=== PATIENT | female | born 1955 ===

== ENCOUNTER 2019-04-12 11:02 | Emergency (ER) | payer BC ==
--- NOTE | 2019-04-12 11:15 | EDM.PDOC ---
<Ryan Gould - Last Filed: 04/12/19 12:00> ED HPI GENERAL MEDICAL PROBLEM - General Chief Complaint: ENT Problem Stated Complaint: COUGHING UP BLOOD Time Seen by Provider: 04/12/19 11:11 Source of Information: Reports: Patient, RN, RN Notes Reviewed History Limitations: Reports: No Limitations - History of Present Illness INITIAL COMMENTS - FREE TEXT/NARRATIVE: Patient presents to the ER for complaints of coughing up blood. She was seen in the ER yesterday for a nosebleed that would not stop. She refused having a rhinorocket placed and was sent home with Afrin to use along with aquapore to use on nasal mucosa. She presents today with same complaint and just wants the bleeding to stop. She woke up at 3 am this morning and had to sit up and was coughing up clots of blood and can feel it runny down the back of her throat. It is making her stomach upset with swallowing so much of it. She denies any blood coming out of her nose today, just draining down the back of her throat. Onset Date: 04/11/19 Duration: Constant Location: Reports: Head, Face Severity: Mild Improves with: Reports: None Worsens with: Reports: None Associated Symptoms: Reports: No Other Symptoms - Related Data Allergies Allergy/AdvReac Type Severity Reaction Status Date / Time clindamycin Allergy Cannot Verified 04/12/19 11:09 Remember Home Meds: Home Meds Calcium Carbonate [Tums] 300 mg PO ASDIRECTED PRN 07/05/18 [History] Calcium Carbonate/Vitamin D3 [Calcium 500 + Vit D 200 Tablet] 1 each PO DAILY [History] Dexlansoprazole [Dexilant] 60 mg PO DAILY 07/05/18 [History] Lactobacillus Combo No.10 [Probiotic] 1 each PO DAILY 07/05/18 [History] Levothyroxine Sodium [Synthroid] 50 mcg PO Q48H 07/05/18 [History] Levothyroxine Sodium [Synthroid] 100 mcg PO Q48H 07/05/18 [History] Loratadine [Claritin] 10 mg PO DAILY 07/05/18 [History] Multivitamin [Daily Multiple Vitamin] 1 each PO DAILY 07/05/18 [History] Mylanta 30 ml PO DAILY 07/05/18 [History] Past Medical History Gastrointestinal History: Reports: Other (See Below) Other Gastrointestinal History: heartburn Endocrine/Metabolic History: Reports: Hypothyroidism ED ROS ENT - Review of Systems Review Of Systems: Comprehensive ROS is negative, except as noted in HPI. ED EXAM, ENT - Physical Exam Exam: See Below Exam Limited By: No Limitations General Appearance: Alert, WD/WN, No Apparent Distress Eye Exam: Bilateral Eye: EOMI, Normal Inspection, PERRL Ears: Normal External Exam, Normal Canal, Hearing Grossly Normal, Normal TMs Nose: Normal Inspection, Normal Mucousa, No Blood Mouth/Throat: Normal Inspection, Normal Gums, Normal Lips, Normal Oropharynx, Normal Teeth, Other (post nasal drainage blood) Head: Atraumatic, Normocephalic Neck: Normal Inspection, Supple, Non-Tender, Full Range of Motion Respiratory/Chest: No Respiratory Distress, Lungs Clear, Normal Breath Sounds, No Accessory Muscle Use, Chest Non-Tender Cardiovascular: Normal Peripheral Pulses, Regular Rate, Rhythm, No Edema, No Gallop, No JVD, No Murmur, No Rub GI/Abdominal: Normal Bowel Sounds, Soft, Non-Tender, No Organomegaly, No Distention, No Abnormal Bruit, No Mass Neurological: Alert, Oriented, CN II-XII Intact, Normal Cognition, Normal Gait, Normal Reflexes, No Motor/Sensory Deficits Psychiatric: Normal Affect, Normal Mood Course - Vital Signs Last Recorded V/S: Last Vital Signs Temp 36.4 C 04/12/19 11:09 Pulse 100 04/12/19 11:09 Resp 16 04/12/19 11:09 BP 177/87 H 04/12/19 11:09 Pulse Ox 100 04/12/19 11:09 - Orders/Labs/Meds Meds: Medications Discontinued Medications Generic Name Dose Route Start Last Admin Trade Name Freq PRN Reason Stop Dose Admin Lidocaine HCl 15 ml 04/12/19 11:18 04/12/19 11:26 Xylocaine 2% Viscous PO 04/12/19 11:19 15 ml ONETIME ONE Administration Departure - Departure Disposition: Home, Self-Care 01 Clinical Impression: Epistaxis, recurrent - Discharge Information Instructions: Nosebleed, Prad-ge-Buij Forms: ED Department Discharge Care Plan Goals: The patient was advised of the examination results. A Rhino rocket was placed in her right nare to control the posterior bleeding. The patient should have the device removed on Monday (04/15/19). A call was placed to the [facility] to arrange for removal. If the patient has any additional symptoms or concerns, the patient should either return to the emergency department or visit her primary care facility. Sepsis Event Note - Focused Exam Vital Signs: Vital Signs Temp Pulse Resp BP Pulse Ox 04/12/19 11:09 36.4 C 100 16 177/87 H 100 Date Exam was Performed: 04/12/19 Time Exam was Performed: 12:01 <Rhett Canchola - Last Filed: 04/12/19 12:25> ED ENT PROCEDURES - Epistaxis Procedure Indication: Epistaxis, Uncontrolled Recent anticoagulants/antiplatlets: No Uncontrolled HTN: No Recent septal/nasal surgery: No Site of bleeding: Right Nare, Posterior Clearing of clots: Patient Blew Nose Topical Meds: Phenylephrine Ice pack to area: No Posterior packing: Long Inflatable Nasal Tampon Local anesthesia - Lidocaine (Xylocaine): 1% Plain (viscous) Local Anesthetic Volume: 2cc Complications: No Course - Re-Assessments/Exams Free Text/Narrative Re-Assessment/Exam: 04/12/19 11:34 I have examined the patient. I have discussed findings and treatment plan with the PA student. I agree with the assessment and plan in the following students note. Free Text/Narrative Re-Assessment/Exam: 04/12/19 12:22 A call was placed to the [facility] in [place]. The patient should have the rhino rocket removed on Monday and may need to move her ENT referral up to a sooner date. Departure - Departure Time of Disposition: 12:23 Condition: Fair - Discharge Information *PRESCRIPTION DRUG MONITORING PROGRAM REVIEWED*: Not Applicable *COPY OF PRESCRIPTION DRUG MONITORING REPORT IN PATIENT TONY: Not Applicable Sepsis Event Note - Focused Exam Date Exam was Performed: 04/12/19 Time Exam was Performed: 12:22
[2019-04-12] MEDS ORDERED: Lidocaine 2% Viscous Solution 15 ML Cup PO ONE (11:18)
== END 2019-04-12 12:30 | disposition home or self-care (01) ==
LOC: EDSEX → DL.ED 11:02 → MERGE 11:02 → DL.ED 12:30
DX: R04.0 Epistaxis (principal); E03.9 Hypothyroidism, unspecified; Z88.1 Allergy status to other antibiotic agents; Z79.899 Other long term (current) drug therapy
CPT/HCPCS: 30905; 99283; A9270; 30903

== ENCOUNTER 2019-04-12 22:00 | Emergency (ER) | payer BC ==
--- NOTE | 2019-04-12 22:44 | EDM.PDOC ---
ED HPI GENERAL MEDICAL PROBLEM - General Chief Complaint: ENT Problem Stated Complaint: NASAL PAIN Time Seen by Provider: 04/12/19 22:44 Source of Information: Reports: Patient, RN, RN Notes Reviewed History Limitations: Reports: No Limitations - History of Present Illness INITIAL COMMENTS - FREE TEXT/NARRATIVE: patient presents to ER with complaint of swelling to the right side of the face , and drainage from the right eye. Patient states she was seen around noon in the ER for a nosebleed. Afrin was used, silver nitrate sticks were used, and finally a nasal rocket was placed. Patient states throughout the day she is begun having severe pressure on the right side of the face, around and behind the right eye. 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 Right Face/Facial Pain Score (Numeric/FACES): 10 - Related Data Allergies Allergy/AdvReac Type Severity Reaction Status Date / Time clindamycin Allergy Cannot Verified 04/12/19 22:21 Remember Home Meds: Home Meds Calcium Carbonate [Tums] 300 mg PO ASDIRECTED PRN 07/05/18 [History] Calcium Carbonate/Vitamin D3 [Calcium 500 + Vit D 200 Tablet] 1 each PO DAILY [History] Dexlansoprazole [Dexilant] 60 mg PO DAILY 07/05/18 [History] Lactobacillus Combo No.10 [Probiotic] 1 each PO DAILY 07/05/18 [History] Levothyroxine Sodium [Synthroid] 50 mcg PO Q48H 07/05/18 [History] Levothyroxine Sodium [Synthroid] 100 mcg PO Q48H 07/05/18 [History] Loratadine [Claritin] 10 mg PO DAILY 07/05/18 [History] Mylanta 30 ml PO DAILY PRN 07/05/18 [History] Past Medical History HEENT History: Reports: Impaired Vision Cardiovascular History: Reports: None Respiratory History: Reports: None Gastrointestinal History: Reports: Other (See Below) Other Gastrointestinal History: heartburn Genitourinary History: Reports: None 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 Musculoskeletal History: Reports: None Neurological History: Reports: None Psychiatric History: Reports: None Endocrine/Metabolic History: Reports: Hypothyroidism Hematologic History: Reports: None Immunologic History: Reports: None Dermatologic History: Reports: None - Infectious Disease History Infectious Disease History: Reports: Chicken Pox, Mumps - Past Surgical History Head Surgeries/Procedures: Reports: None Respiratory Surgical History: Reports: None Social & Family History - Family History Family Medical History: Noncontributory - Tobacco Use Smoking Status *Q: Former Smoker Years of Tobacco use: 25 Packs/Tins Daily: 0.5 Used Tobacco, but Quit: Yes Month/Year Tobacco Last Used: 01/2010 - Caffeine Use Caffeine Use: Reports: Coffee - Recreational Drug Use Recreational Drug Use: No ED ROS ENT - Review of Systems Review Of Systems: Comprehensive ROS is negative, except as noted in HPI. ED EXAM, ENT - Physical Exam Exam: See Below Exam Limited By: No Limitations General Appearance: Alert, WD/WN, Moderate Distress Eye Exam: Right Eye: Other (purulent drainage from the right eye) Ears: Normal External Exam, Normal Canal, Hearing Grossly Normal, Normal TMs, Other (healing ruptured TM on the left) Nose: Normal Inspection, Injected Turbinates (ight), Other (nasal rocket in place) Mouth/Throat: Normal Inspection, Normal Gums, Normal Lips, Normal Oropharynx, Normal Teeth Head: Atraumatic, Normocephalic Neck: Normal Inspection, Supple, Non-Tender, Full Range of Motion Respiratory/Chest: No Respiratory Distress, Lungs Clear, Normal Breath Sounds, No Accessory Muscle Use, Chest Non-Tender Cardiovascular: Normal Peripheral Pulses, Regular Rate, Rhythm, No Edema, No Gallop, No JVD, No Murmur, No Rub GI/Abdominal: Normal Bowel Sounds, Soft, Non-Tender (Female) Exam: Deferred Rectal (Female) Exam: Deferred Back: Normal Inspection, Full Range of Motion Extremities: Normal Inspection, Normal Range of Motion, Non-Tender, No Pedal Edema, Normal Capillary Refill Neurological: Alert, Oriented, CN II-XII Intact, Normal Cognition, Normal Gait, Normal Reflexes, No Motor/Sensory Deficits Psychiatric: Normal Affect, Normal Mood, Anxious Skin: Warm, Dry, Intact, Normal Color, No Rash Lymphatic: Adenopathy (right anterior cervical) Course - Vital Signs Last Recorded V/S: Last Vital Signs Temp 97.8 F 04/12/19 22:14 Pulse 92 04/12/19 22:14 Resp 18 04/12/19 22:14 BP 105/74 04/12/19 22:14 Pulse Ox 98 04/12/19 22:14 - Orders/Labs/Meds Meds: Medications Discontinued Medications Generic Name Dose Route Start Last Admin Trade Name Freq PRN Reason Stop Dose Admin Amoxicillin/Clavulanate Potassium 1 tab 04/12/19 23:44 04/12/19 23:53 Augmentin 875 Mg/125 Mg PO 04/12/19 23:45 1 tab ONETIME ONE Administration - Radiology Interpretation Free Text/Narrative:: CT Max/Face/Sinus wo contrast: FINDINGS: Orbits: Orbits are normal. Globes are unremarkable. No intraorbital edema or fluid. Intraconal and extraconal fat are unremarkable. There is air in the right naso lacrimal duct, but the right nasal mucosa is severely edematous. Sinuses: Small air-fluid levels in bilateral maxillary sinuses. Frontal sinus hypoplastic. Bilateral anterior ethmoid air cell opacification. Bones/joints: No acute fracture. Nasal cavity: Right nasal mucosal edema. Soft tissues: Unremarkable. IMPRESSION: 1. Right nasal mucosal edema. 2. Right nasolacrimal duct shows proximal air. Distal aspect is lost visualization in the severe right nasal mucosal edema. 3. Bilateral maxillary sinus air-fluid levels. 4. Chronic sinus disease in the anterior ethmoid sinuses. Thank you for allowing us to participate in the care of your patient. Dictated and Authenticated by: Mitchell Cartagena MD 04/12/2019 11:59 PM Central Time ([place] & [place]) CT Soft tissue/neck: FINDINGS: Nasopharynx: Unremarkable. Oropharynx: Unremarkable. No significant tonsillar enlargement. Hypopharynx: Unremarkable. Larynx: Unremarkable. Normal epiglottis. Retropharyngeal space: Unremarkable. Submandibular/Parotid glands: Normal. Glands are normal in size. Thyroid: Normal. No enlarged or calcified nodules. Lymph nodes: Unremarkable. No lymphadenopathy. Trachea: Visualized trachea is unremarkable. Lungs: Right upper lobe posterior subsegmental area of ground-glass opacification. 14 mm in diameter. Series 7, image 62 (with lung windows). This may represent an area of minor infiltrate. Vasculature: Ascending aorta with maximal AP diameter of 3.8 cm. Bones/joints: Multilevel degenerative cervical spine change. Soft tissues: Unremarkable. No significant soft tissue swelling. IMPRESSION: 1. Right upper lobe subsegmental ground-glass opacification which may represent an area of infiltrate. This is nonspecific. This does not appear masslike on this current evaluation. Recommend CT at 6-12 months to confirm persistence or resolution of the this opacification , then CT at 3 and at 5 years. (Moraima et al., Fleischner Society, 2017) 2. Soft tissues of the neck without mass or edema. No adenopathy. 3. No evidence of parapharyngeal abscess. 4. Degenerative cervical spine disease. Thank you for allowing us to participate in the care of your patient. Dictated and Authenticated by: Mitchell Cartagena MD 04/12/2019 11:54 PM Central Time ([place] & [place]) See rad report - Re-Assessments/Exams Free Text/Narrative Re-Assessment/Exam: 04/13/19 04:42 nasal rocket was removed from the right near without difficulty. No bleeding from the nose or down the back of the throat after removing the nasal rocket. Departure - Departure Time of Disposition: 00:45 Disposition: Home, Self-Care 01 Condition: Fair Clinical Impression: Acute sinus infection Qualifiers: Sinusitis location: maxillary Recurrence: non-recurrent Qualified Code(s): J01.00 - Acute maxillary sinusitis, unspecified - Discharge Information *PRESCRIPTION DRUG MONITORING PROGRAM REVIEWED*: No *COPY OF PRESCRIPTION DRUG MONITORING REPORT IN PATIENT TONY: No Instructions: Sinusitis, Adult, [id number] Referrals: Yulissa Chilel NP [Primary Care Provider] - Forms: ED Department Discharge Additional Instructions: RX: Augmentin May use over the counter Sudafed or other decongestant Drink plenty of water May use Tylenol as directed for pain Return to the ER with any worsening of symptoms Sepsis Event Note - Evaluation Sepsis Screening Result: No Definite Risk - Focused Exam Vital Signs: Vital Signs Temp Pulse Resp BP Pulse Ox 04/12/19 22:14 97.8 F 92 18 105/74 98 Date Exam was Performed: 04/13/19 Time Exam was Performed: 04:40
[2019-04-12] MEDS ORDERED: Amoxicillin/Clavulanate K 875-125 MG Tab PO ONE (23:44)
== END 2019-04-13 00:55 | disposition home or self-care (01) ==
LOC: EDSEX → DL.ED 22:00 → MERGE 22:00 → DL.ED 04-13 00:55
DX: J01.00 Acute maxillary sinusitis, unspecified (principal); Z88.1 Allergy status to other antibiotic agents; Z79.899 Other long term (current) drug therapy; Z87.891 Personal history of nicotine dependence
CPT/HCPCS: 70486; 70490; 99283; A9270

== ENCOUNTER 2019-05-30 08:00 | Day surgery (SDC) | payer BC ==
[~2019-05-30 08:00] MED LIST: Benzocaine 20% Topical Spray UD MUCMEM ONE; Lactated Ringers 1,000 ML IV SCH; Midazolam 1 MG/ML 2 ML SDV ONE; Ondansetron 4 MG/2 ML SDV IVPUSH ONE
[2019-05-30] MEDS ORDERED: Midazolam 1 MG/ML 2 ML SDV IV ONE ×5 (08:01→08:40)
[2019-05-30] MEDS ORDERED: Benzocaine 20% Topical Spray UD MUCMEM ONE (08:39)
[2019-05-30] MEDS ORDERED: Midazolam 1 MG/ML 2 ML SDV ONE (08:43)
--- NOTE | 2019-05-30 09:27 | OR ---
DATE: 05/30/2019 PREOPERATIVE DIAGNOSIS: Gastroesophageal reflux disease and history of Kaur's. POSTOPERATIVE DIAGNOSIS: Gastroesophageal reflux disease and history of Kaur's. PROCEDURES: Esophagogastroduodenoscopy with photograph and multiple distal esophageal biopsies. Also 1 for H pylori in the gastric antrum. ANESTHESIA: Conscious sedation with IV Versed. SPECIMEN: PyloriTek biopsy of the stomach, and distal esophageal biopsy x2. OPERATIVE FINDINGS: Small hiatal hernia. No significant current distal esophagitis but some small areas that could represent Kaur's. No masses, bleeding sites, ulcers, or evidence of gastritis. INDICATION FOR PROCEDURE: This 64-year-old female had significant gastroesophageal reflux symptoms. She has a history of Kaur's esophagitis. PROCEDURE IN DETAIL: After adequate preparation, a gastroscope was inserted into the esophagus. This was passed down to the distal esophagus. She does show a small hiatal hernia and a few areas where the erosions appear to be up into the esophagus more that would be consistent with Kaur's. This is not very significant, however, and there is no other evidence of esophagitis. The scope was advanced into the stomach. Both forward and retroflexed views were done and are normal. The scope was advanced through the pylorus and the first and second part of the duodenum is also normal. A biopsy of the distal prepyloric antrum of the stomach was taken for evaluation of H pylori. Photograph of retroflexion documents a small hiatal hernia. Air was suctioned from the stomach. On withdrawal of the scope in the esophagus, there were 2 areas that were biopsied. No other significant abnormalities were noted. On withdrawal of the scope, the remaining part of the esophagus and hypopharynx is normal. [facility] /[id number]
== END 2019-05-30 10:10 | disposition home or self-care (01) ==
LOC: DL.ENDO 08:00
PROVIDERS: ATTEND Surgery
DX: K21.0 Gastro-esophageal reflux disease with esophagitis (principal); K22.70 Barrett's esophagus without dysplasia; K44.9 Diaphragmatic hernia without obstruction or gangrene; E03.9 Hypothyroidism, unspecified; I10 Essential (primary) hypertension; Z88.1 Allergy status to other antibiotic agents; Z79.899 Other long term (current) drug therapy; Z79.890 Hormone replacement therapy
CPT/HCPCS: 43239; 87077; A9270; J2250; J2405; J7120

== ENCOUNTER 2021-01-17 01:27 | Emergency (ER) | payer BC ==
[2021-01-17] MEDS ORDERED: Acetaminophen 500 MG Tab PO ONE (02:04)
[2021-01-17] MEDS ORDERED: Nitroglycerin 0.4 MG Tab.SL SL ONE (02:04)
[2021-01-17 02:12] LABS: ANION GAP 13.4 mEq/L (7-13); CHLORIDE,CL 86 mmol/L (98-107); SODIUM,NA 124 mmol/L (136-145)
--- NOTE | 2021-01-17 02:23 | EDM.PDOC ---
ED HPI GENERAL MEDICAL PROBLEM - General Chief Complaint: Headache Stated Complaint: PRESSURE IN HEAD AND PAINS CHEST Time Seen by Provider: 01/17/21 02:00 Source of Information: Reports: Patient, Old Records, RN, RN Notes Reviewed History Limitations: Reports: No Limitations - History of Present Illness INITIAL COMMENTS - FREE TEXT/NARRATIVE: Maira is a 65 y/o female who presents to the ED via personal vehicle with complaints of ear pressure, headache, shortness of breath, and chest tightness. The patient reports her headache and shortness of breath have been ongoing for about two weeks, however tonight she noted tightness in her chest. She rates the pain in her chest as a 7/10 with radiation into the left inferior upper arm. She denies fever, shaking chills, vision changes, dizziness, cough, sore throat, palpitations, nausea, vomiting, abdominal pain, diarrhea, or constipation. The patient reports her HCTZ was increased from 25 to 50mg and she was started on Keflex and Carafate for her symptoms by her PCP, however she is not currently using the Carafate and the Keflex is not providing alleviation in her headache. Additionally, she took Lorazepam 1.5mg PO for her chest tightness with no relief in symptoms. She attests to drinking two beers tonight as well as a remote history of cigarette smoking; she denies recreational drug use. - Related Data Allergies Allergy/AdvReac Type Severity Reaction Status Date / Time clindamycin Allergy Cannot Verified 01/17/21 02:15 Remember Home Meds: Home Meds Calcium Carbonate [Tums] 300 mg PO ASDIRECTED PRN 07/05/18 [History] Dexlansoprazole [Dexilant] 60 mg PO DAILY 07/05/18 [History] Lactobacillus Combo No.10 [Probiotic] 1 each PO DAILY 07/05/18 [History] Levothyroxine Sodium [Synthroid] 50 mcg PO Q48H 07/05/18 [History] Levothyroxine Sodium [Synthroid] 100 mcg PO Q48H 07/05/18 [History] Loratadine [Claritin] 10 mg PO DAILY 07/05/18 [History] hydroCHLOROthiazide [Hydrochlorothiazide] 25 mg PO DAILY 05/29/19 [History] Cholecalciferol (Vitamin D3) [Vitamin D3] 4 drop PO DAILY 06/12/19 [History] LORazepam [Lorazepam] 0.5 mg PO TID PRN 06/12/19 [History] Mag Hydrox/Aluminum Hyd/Simeth [Mylanta Maximum Strength Liq] 30 ml PO ASDIRECTED PRN 06/12/19 [History] Past Medical History - Past Health History Medical/Surgical History: Denies Medical/Surgical History HEENT History: Reports: Impaired Vision, Sinusitis Other HEENT History: Scheduled with ENT on Mon for sinusitis. Has had previous nose bleeds this past week. Cardiovascular History: Reports: None Respiratory History: Reports: None Gastrointestinal History: Reports: GERD, Other (See Below) Other Gastrointestinal History: heartburn Genitourinary History: Reports: None MATCH MAKER History: Reports: None Musculoskeletal History: Reports: None Neurological History: Reports: None Psychiatric History: Reports: None Endocrine/Metabolic History: Reports: Hypothyroidism Hematologic History: Reports: None Immunologic History: Reports: None Oncologic (Cancer) History: Reports: None Dermatologic History: Reports: None - Infectious Disease History Infectious Disease History: Reports: Chicken Pox, Mumps - Past Surgical History Head Surgeries/Procedures: Reports: None HEENT Surgical History: Reports: Naso-Sinus Surgery Cardiovascular Surgical History: Reports: None Respiratory Surgical History: Reports: None GI Surgical History: Reports: EGD Social & Family History - Family History Family Medical History: No Pertinent Family History - Tobacco Use Tobacco Use Status *Q: Former Tobacco User Years of Tobacco use: 10 Used Tobacco, but Quit: Yes Month/Year Tobacco Last Used: 20 - Caffeine Use Caffeine Use: Reports: Coffee Other Caffeine Use: 1 cup / day ED ROS GENERAL - Review of Systems Review Of Systems: Comprehensive ROS is negative, except as noted in HPI. ED EXAM, GENERAL - Physical Exam Exam: See Below Exam Limited By: No Limitations General Appearance: Alert, No Apparent Distress Eye Exam: Bilateral Eye: EOMI, Normal Inspection, PERRL (3mm) Ears: Normal External Exam, Hearing Grossly Normal Ear Exam: Bilateral Ear: TM Dull (Serous fluid) Nose: Normal Inspection, Normal Mucosa, No Blood Throat/Mouth: Normal Inspection, Normal Oropharynx, Normal Voice, No Airway Compromise Head: Atraumatic, Normocephalic Neck: Normal Inspection, Supple, Non-Tender, Full Range of Motion. No: Lymphadenopathy (L), Lymphadenopathy (R) Respiratory/Chest: No Respiratory Distress, Lungs Clear, Normal Breath Sounds, No Accessory Muscle Use, Chest Non-Tender. No: Crackles, Rales, Rhonchi, Wheezing, Stridor Cardiovascular: Normal Peripheral Pulses, Regular Rate, Rhythm, No Gallop, No Murmur, No Rub Peripheral Pulses: 2+: Radial (L), Radial (R) GI/Abdominal: Normal Bowel Sounds, Soft, Non-Tender, No Distention, No Abnormal Bruit, No Mass, Pelvis Stable (Female) Exam: Deferred Rectal (Female) Exam: Deferred Back Exam: Normal Inspection, Full Range of Motion Extremities: Normal Inspection, Normal Range of Motion, Normal Capillary Refill Neurological: Alert, Oriented, CN II-XII Intact, Normal Cognition, Normal Gait, No Motor/Sensory Deficits Psychiatric: Normal Affect, Normal Mood Skin Exam: Warm, Dry, Intact, Normal Color, No Rash. No: Cyanosis, Jaundice, Mottled, Pallor #1 Interpretation EKG Date: 01/17/21 Time: 01:43 Rhythm: NSR Rate (Beats/Min): 79 [place]: Normal P-Wave: Present QRS: Normal ST-T: Normal QT: Normal [place]/PQ Interval: 0.14 Comparison: NA - No Prior EKG EKG Interpretation Comments: NSR; q-wave in II, III, and aVF; No evidence of acute myocardial ischemia Course - Vital Signs Last Recorded V/S: Last Vital Signs Temp 97.8 F 01/17/21 01:57 Pulse 98 01/17/21 01:57 Resp 18 01/17/21 01:57 BP 150/74 H 01/17/21 02:10 Pulse Ox 98 01/17/21 01:57 - Orders/Labs/Meds Labs: Laboratory Tests 01/17/21 01/17/21 01/17/21 Range/Units 01:45 01:45 01:45 WBC 5.0 (5.0-10.0) 10^3/uL RBC 3.84 L (4.2-5.4) 10^6/uL Hgb 12.4 (12.0-16.0) g/dL Hct 35.4 L (37.0-47.0) % MCV 92.2 (80-100) fL MCH 32.3 (27.0-34.0) pg MCHC 35.0 (33.0-35.0) g/dL Plt Count 274 (150-450) 10^3/uL Neut % (Auto) 58.0 (42.2-75.2) % Lymph % (Auto) 23.9 (20.5-50.1) % [place] % (Auto) 15.9 H (2-8) % Eos % (Auto) 1.4 (1.0-3.0) % Baso % (Auto) 0.8 (0.0-1.0) % Sodium 124 L (136-145) mmol/L Potassium 3.4 L (3.5-5.1) mmol/L Chloride 86 L (98-107) mmol/L Carbon Dioxide 28 (21-32) mmol/L Anion Gap 13.4 H (7-13) mEq/L BUN 6 L (7-18) mg/dL Creatinine 0.69 (0.55-1.02) mg/dL Est Cr Clr Drug Dosing 70.19 mL/min Estimated GFR (MDRD) > 60 BUN/Creatinine Ratio 8.7 (No establ ref range) Glucose 87 (70-99) mg/dL Lactic Acid 0.8 (0.4-2.0) mmol/L Calcium 8.6 (8.5-10.1) mg/dL Magnesium 2.1 (1.8-2.4) mg/dL Total Bilirubin 0.9 (0.2-1.0) mg/dL AST 17 (15-37) U/L ALT 26 (14-59) U/L Alkaline Phosphatase 66 (46-116) U/L Troponin I High Sens 5 (<=51) pg/mL C-Reactive Protein < 0.2 (0.0-0.9) mg/dL B-Natriuretic Peptide 27 (0-100) pg/ml Total Protein 6.9 (6.4-8.2) g/dL Albumin 4.0 (3.4-5.0) g/dL Globulin 2.9 Albumin/Globulin Ratio 1.4 Amylase 59 (25-115) U/L Lipase 130 (73-393) U/L Urine Color (YELLOW) Urine Appearance (CLEAR) Urine pH (5.0-9.0) Ur Specific Madeline (1.005-1.030) Urine Protein (NEGATIVE) Urine Glucose (UA) (NEGATIVE) Urine Ketones (NEGATIVE) Urine Occult Blood (NEGATIVE) Urine Nitrite (NEGATIVE) Urine Bilirubin (NEGATIVE) Urine Urobilinogen (0.2-1.0) mg/dL Ur Leukocyte Esterase (NEGATIVE) Urine RBC (0-5) /HPF Urine WBC (0-5/HPF) /HPF Ur Epithelial Cells (NOT SEEN) /HPF Urine Bacteria (0-FEW/HPF) /HPF Urine Opiates Screen (NEGATIVE) Ur Oxycodone Screen (NEGATIVE) Urine Methadone Screen (NEGATIVE) Ur Barbiturates Screen (NEGATIVE) U Tricyclic Antidepress (NEGATIVE) Ur Phencyclidine Scrn (NEGATIVE) Ur Amphetamine Screen (NEGATIVE) U Methamphetamines Scrn (NEGATIVE) Urine MDMA Screen (NEGATIVE) U Benzodiazepines Scrn (NEGATIVE) Urine Cocaine Screen (NEGATIVE) U Marijuana (THC) Screen (NEGATIVE) Ethyl Alcohol 9 (0) mg/dL SARS-CoV-2 RNA (HEAVEN) (NEGATIVE) 01/17/21 01/17/21 01/17/21 Range/Units 01:54 04:05 04:14 WBC (5.0-10.0) 10^3/uL RBC (4.2-5.4) 10^6/uL Hgb (12.0-16.0) g/dL Hct (37.0-47.0) % MCV (80-100) fL MCH (27.0-34.0) pg MCHC (33.0-35.0) g/dL Plt Count (150-450) 10^3/uL Neut % (Auto) (42.2-75.2) % Lymph % (Auto) (20.5-50.1) % [place] % (Auto) (2-8) % Eos % (Auto) (1.0-3.0) % Baso % (Auto) (0.0-1.0) % Sodium (136-145) mmol/L Potassium (3.5-5.1) mmol/L Chloride (98-107) mmol/L Carbon Dioxide (21-32) mmol/L Anion Gap (7-13) mEq/L BUN (7-18) mg/dL Creatinine (0.55-1.02) mg/dL Est Cr Clr Drug Dosing mL/min Estimated GFR (MDRD) BUN/Creatinine Ratio (No establ ref range) Glucose (70-99) mg/dL Lactic Acid (0.4-2.0) mmol/L Calcium (8.5-10.1) mg/dL Magnesium (1.8-2.4) mg/dL Total Bilirubin (0.2-1.0) mg/dL AST (15-37) U/L ALT (14-59) U/L Alkaline Phosphatase (46-116) U/L Troponin I High Sens 6 (<=51) pg/mL C-Reactive Protein (0.0-0.9) mg/dL B-Natriuretic Peptide (0-100) pg/ml Total Protein (6.4-8.2) g/dL Albumin (3.4-5.0) g/dL Globulin Albumin/Globulin Ratio Amylase (25-115) U/L Lipase (73-393) U/L Urine Color Yellow (YELLOW) Urine Appearance Clear (CLEAR) Urine pH 7.0 (5.0-9.0) Ur Specific Madeline 1.010 (1.005-1.030) Urine Protein Negative (NEGATIVE) Urine Glucose (UA) Negative (NEGATIVE) Urine Ketones Negative (NEGATIVE) Urine Occult Blood Trace-intact H (NEGATIVE) Urine Nitrite Negative (NEGATIVE) Urine Bilirubin Negative (NEGATIVE) Urine Urobilinogen 0.2 (0.2-1.0) mg/dL Ur Leukocyte Esterase Negative (NEGATIVE) Urine RBC Not seen (0-5) /HPF Urine WBC 0-5 (0-5/HPF) /HPF Ur Epithelial Cells Moderate H (NOT SEEN) /HPF Urine Bacteria Moderate H (0-FEW/HPF) /HPF Urine Opiates Screen (NEGATIVE) Ur Oxycodone Screen (NEGATIVE) Urine Methadone Screen (NEGATIVE) Ur Barbiturates Screen (NEGATIVE) U Tricyclic Antidepress (NEGATIVE) Ur Phencyclidine Scrn (NEGATIVE) Ur Amphetamine Screen (NEGATIVE) U Methamphetamines Scrn (NEGATIVE) Urine MDMA Screen (NEGATIVE) U Benzodiazepines Scrn (NEGATIVE) Urine Cocaine Screen (NEGATIVE) U Marijuana (THC) Screen (NEGATIVE) Ethyl Alcohol (0) mg/dL SARS-CoV-2 RNA (HEAVEN) Negative (NEGATIVE) 01/17/21 Range/Units 04:14 WBC (5.0-10.0) 10^3/uL RBC (4.2-5.4) 10^6/uL Hgb (12.0-16.0) g/dL Hct (37.0-47.0) % MCV (80-100) fL MCH (27.0-34.0) pg MCHC (33.0-35.0) g/dL Plt Count (150-450) 10^3/uL Neut % (Auto) (42.2-75.2) % Lymph % (Auto) (20.5-50.1) % [place] % (Auto) (2-8) % Eos % (Auto) (1.0-3.0) % Baso % (Auto) (0.0-1.0) % Sodium (136-145) mmol/L Potassium (3.5-5.1) mmol/L Chloride (98-107) mmol/L Carbon Dioxide (21-32) mmol/L Anion Gap (7-13) mEq/L BUN (7-18) mg/dL Creatinine (0.55-1.02) mg/dL Est Cr Clr Drug Dosing mL/min Estimated GFR (MDRD) BUN/Creatinine Ratio (No establ ref range) Glucose (70-99) mg/dL Lactic Acid (0.4-2.0) mmol/L Calcium (8.5-10.1) mg/dL Magnesium (1.8-2.4) mg/dL Total Bilirubin (0.2-1.0) mg/dL AST (15-37) U/L ALT (14-59) U/L Alkaline Phosphatase (46-116) U/L Troponin I High Sens (<=51) pg/mL C-Reactive Protein (0.0-0.9) mg/dL B-Natriuretic Peptide (0-100) pg/ml Total Protein (6.4-8.2) g/dL Albumin (3.4-5.0) g/dL Globulin Albumin/Globulin Ratio Amylase (25-115) U/L Lipase (73-393) U/L Urine Color (YELLOW) Urine Appearance (CLEAR) Urine pH (5.0-9.0) Ur Specific [place] (1.005-1.030) Urine Protein (NEGATIVE) Urine Glucose (UA) (NEGATIVE) Urine Ketones (NEGATIVE) Urine Occult Blood (NEGATIVE) Urine Nitrite (NEGATIVE) Urine Bilirubin (NEGATIVE) Urine Urobilinogen (0.2-1.0) mg/dL Ur Leukocyte Esterase (NEGATIVE) Urine RBC (0-5) /HPF Urine WBC (0-5/HPF) /HPF Ur Epithelial Cells (NOT SEEN) /HPF Urine Bacteria (0-FEW/HPF) /HPF Urine Opiates Screen Negative (NEGATIVE) Ur Oxycodone Screen Negative (NEGATIVE) Urine Methadone Screen Negative (NEGATIVE) Ur Barbiturates Screen Negative (NEGATIVE) U Tricyclic Antidepress Negative (NEGATIVE) Ur Phencyclidine Scrn Negative (NEGATIVE) Ur Amphetamine Screen Negative (NEGATIVE) U Methamphetamines Scrn Negative (NEGATIVE) Urine MDMA Screen Negative (NEGATIVE) U Benzodiazepines Scrn Negative (NEGATIVE) Urine Cocaine Screen Negative (NEGATIVE) U Marijuana (THC) Screen Negative (NEGATIVE) Ethyl Alcohol (0) mg/dL SARS-CoV-2 RNA (HEAVEN) (NEGATIVE) Meds: Medications Discontinued Medications Generic Name Dose Route Start Last Admin Trade Name Freq PRN Reason Stop Dose Admin Acetaminophen 1,000 mg 01/17/21 02:04 01/17/21 02:10 Acetaminophen 500 Mg Tab PO 01/17/21 02:05 1,000 mg ONETIME ONE Administration Al Hydroxide/Mg Hydroxide 30 ml 01/17/21 03:42 01/17/21 03:52 Gi Cocktail Oral Solution 30 Ml PO 01/17/21 03:43 30 ml ONETIME ONE Administration Sodium Chloride 1,000 mls @ 999 mls/hr 01/17/21 02:32 01/17/21 02:39 Normal Saline IV 01/17/21 03:32 999 mls/hr .BOLUS ONE Administration Ketorolac Tromethamine 30 mg 01/17/21 04:34 01/17/21 04:43 Ketorolac 30 Mg/Ml Sdv IM 01/17/21 04:35 30 mg ONETIME ONE Administration Nitroglycerin 0.4 mg 01/17/21 02:04 01/17/21 02:10 Nitroglycerin 0.4 Mg Tab.Sl SL 01/17/21 02:05 0.4 mg ONETIME ONE Administration - Re-Assessments/Exams Free Text/Narrative Re-Assessment/Exam: 01/17/21 Nitro SL administered with triage. EKG unremarkable, Troponin WNL; will trend over the next two hours. Patient verbalized mild improvement in pain following Nitro. GI cocktail administered. Patient continues to experience headache, Ketorolac 30mg IV administered. Troponin and EKG remain unchanged. Findings of examination and lab work reviewed with patient. Supportive cares discussed. Patient instructed to follow up with primary care provider in 1-2 days regarding todays visit, especially blood pressure and headache management. Red flag signs and symptoms which would warrant immediate reevaluation reviewed. Patient verbalized understanding and agreement with the plan of care. Departure - Departure Time of Disposition: 04:34 Disposition: Home, Self-Care 01 Condition: Good Clinical Impression: Hyponatremia, Nonspecific chest pain Headache Qualifiers: Headache type: tension-type Headache chronicity pattern: unspecified pattern Intractability: not intractable Qualified Code(s): G44.209 - Tension-type headache, unspecified, not intractable - Discharge Information *PRESCRIPTION DRUG MONITORING PROGRAM REVIEWED*: Not Applicable *COPY OF PRESCRIPTION DRUG MONITORING REPORT IN PATIENT TONY: Not Applicable Instructions: General Headache Without Cause, Hyponatremia, [id number], Nonspecific Chest Pain, Adult, Form - Headache Record Referrals: PCP,None [Primary Care Provider] - Forms: ED Department Discharge Additional Instructions: 1.) Reduce your HCTZ dose to 25mg until you are able to get in to your primary care provider, earlier in the week is best. 2.) You may take ibuprofen (Advil/Motrin) 400-800mg every six hours, as headache persists. You may also take acetaminophen (Tylenol) 650-1000mg every six hours, as pain persists. You may stagger these medications so you are taking a dose of either every three hours. 3.) Follow up with your primary care provider in 2-3 days to discuss headache management and further evaluation. You may require a head CT or a medication change, such as starting propranolol 4.) Return to the emergency department with any worsening or persistent symptoms, despite medications and supportive cares. Sepsis Event Note (ED) - Evaluation Sepsis Screening Result: No Definite Risk
[2021-01-17] MEDS ORDERED: Sodium Chloride 0.9% 1,000 ML IV ONE (02:32)
[2021-01-17] MEDS ORDERED: GI Cocktail Oral Solution 30 ML PO ONE (03:42)
[2021-01-17 04:21] LABS: AMPHETAMINES,URINE NEGATIVE (NEGATIVE); BARBITURATES,URINE NEGATIVE (NEGATIVE); BENZODIAZEPINE,URINE NEGATIVE (NEGATIVE); MDMA (ECSTASY), URINE NEGATIVE (NEGATIVE); METHADONE,URINE NEGATIVE (NEGATIVE); METHAMPHETAMINES,URINE NEGATIVE (NEGATIVE); OPIATES,URINE NEGATIVE (NEGATIVE); OXYCODONE,URINE NEGATIVE (NEGATIVE); PHENCYCLIDINE,URINE NEGATIVE (NEGATIVE); TCA,URINE NEGATIVE (NEGATIVE)
[2021-01-17] MEDS ORDERED: Ketorolac 30 MG/ML SDV IM ONE (04:34)
== END 2021-01-17 05:26 | disposition home or self-care (01) ==
LOC: DL.ED 01:27
DX: G44.209 Tension-type headache, unspecified, not intractable (principal); E87.1 Hypo-osmolality and hyponatremia; R07.9 Chest pain, unspecified; Z88.1 Allergy status to other antibiotic agents; K21.9 Gastro-esophageal reflux disease without esophagitis; E03.9 Hypothyroidism, unspecified; Z79.899 Other long term (current) drug therapy; Z20.822 Contact with and (suspected) exposure to COVID-19; Z87.891 Personal history of nicotine dependence
CPT/HCPCS: 36415; 80053; 80305; 80307; 81001; 82150; 83605; 83690; 83735; 83880; 84484; 85025; 86140; 87635; 93005; 96372; 99285; A9270; J1885; J7030; U0002

== ENCOUNTER 2021-04-29 13:29 | Emergency (ER) | payer BC ==
[2021-04-29 15:20] LABS: ANION GAP 12.2 mEq/L (7-13); CHLORIDE,CL 98 mmol/L (98-107); SODIUM,NA 134 mmol/L (136-145)
== END 2021-04-29 16:19 | disposition home or self-care (01) ==
LOC: DL.ED 13:29
DX: R07.2 Precordial pain (principal); K21.9 Gastro-esophageal reflux disease without esophagitis; E03.9 Hypothyroidism, unspecified; Z88.1 Allergy status to other antibiotic agents; Z79.899 Other long term (current) drug therapy
CPT/HCPCS: 36415; 71045; 80053; 83735; 84443; 84484; 85025; 86140; 93005; 99285-25

== ENCOUNTER 2023-09-24 16:41 | Emergency (ER) | payer MEDICARE, BC | END 2023-09-24 18:04 | disposition home or self-care (01) | LOC: DL.ED 16:41 | DX: U07.1 COVID-19 (principal); I10 Essential (primary) hypertension; K21.9 Gastro-esophageal reflux disease without esophagitis; E03.9 Hypothyroidism, unspecified; Z88.1 Allergy status to other antibiotic agents; Z79.899 Other long term (current) drug therapy | CPT/HCPCS: 87804; 99283; U0002 ==